=== PATIENT | female | born 1955 ===

== ENCOUNTER → 2023-11-07 | Outpatient (CLI) | payer OTHER ==
[2023-11-15 13:44] LABS: HPV GENOTYPE 16 BY PCR Negative; HPV GENOTYPE 18 BY PCR Negative; HPV SOURCE Cervical; HPV, OTHER HIGH RISK BY PCR Negative
== END | disposition home or self-care (01) ==
LOC: EDSTATUS 07:47 → LAB SHORT 13:42 → LAB 13:42
PROVIDERS: Nurse Practitioner Family
DX: Z12.4 Encounter for screening for malignant neoplasm of cervix (principal)
CPT/HCPCS: 87624; 88142